=== PATIENT | female | born 1955 | race Caucasian/White ===

== ENCOUNTER 2017-11-19 17:42 | Emergency (ER) | payer MEDICAID ==
[2017-11-19 17:42] VITALS: BMI 43.0
--- NOTE | 2017-11-19 19:37 | ED PDOC ---
Lower Extremity Pain/Injury Time Seen by Provider: 11/19/17 18:46 Chief Complaint (Nursing): Lower Extremity Problem/Injury Chief Complaint (Provider): Left Ankle Pain and Swelling History Per: Patient History/Exam Limitations: no limitations Onset/Duration Of Symptoms: Days (x2 weeks) Current Symptoms Are (Timing): Still Present Additional Complaint(s): 62 year old female presents to the ED for evaluation of left ankle swelling and pain. Patient states that one month ago she injured her left pinky toe, and after normal XRs, was told by her director multiple sclerosis center Dr. Caballero that it was a ligament injury. She reports two weeks ago she noticed swelling and burning pain to her left ankle despite any further injury, and had an US done to r/o a DVT which was unremarkable. Since the US, she notes the swelling and pain have increased, especially at the end of the day, but has not been taking any medications for these symptoms. She has no other complaints at this time. Otherwise, (-) numbness, (-) tingling (-) falls. PMD: Eric Past Medical History Reviewed: Historical Data, Nursing Documentation, Vital Signs Vital Signs: Last Vital Signs Temp 98.4 F 11/19/17 18:40 Pulse 72 11/19/17 18:40 Resp 16 11/19/17 18:40 BP 178/84 H 11/19/17 18:40 Pulse Ox 98 11/19/17 18:40 - Medical History PMH: Anxiety, Asthma (NO PROBLEM 3 YEARS NO MEDS), CAD, Diabetes, Fractures (RT WRIST NO SURGERY), Gastritis, HTN, Hypercholesterolemia, Sleep Apnea (USES C-PAP ) Denies: Chronic Kidney Disease Other PMH: kidney cancer - Surgical History Surgical History: Endoscopy Other surgeries: kidney removal; stent placement - Family History Family History: States: Unknown Family Hx - Social History Ex-Smoker (has not smoked in the last 12 months): Yes Alcohol: None Drugs: Denies - Home Medications Home Medications: Ambulatory Orders Medication Instructions Recorded Atenolol [Tenormin] 1 tab PO DAILY 02/05/15 Liraglutide [Victoza] 12 mg SC HS 02/05/15 Valsartan [Diovan] 1 tab PO DAILY 02/05/15 amLODIPine [Norvasc] 1 tab PO DAILY 02/05/15 Acetaminophen [Acetaminophen 8 650 mg PO Q8 #24 tablet.er 11/19/17 Hour] - Allergies Allergies/Adverse Reactions: Allergies Allergy/AdvReac Type Severity Reaction Status Date / Time iodine Allergy RASH Verified 11/19/17 18:40 Penicillins Allergy RASH Verified 11/19/17 18:40 Review of Systems ROS Statement: Except As Marked, All Systems Reviewed And Found Negative Musculoskeletal: Positive for: Other (left ankle swelling and pain) Neurological: Negative for: Numbness (or tingling) Physical Exam - Reviewed Nursing Documentation Reviewed: Yes Vital Signs Reviewed: Yes - Physical Exam Comments: GENERAL APPEARANCE: Patient is awake, alert, oriented x 3, in no acute distress. SKIN: Warm, dry; (-) cyanosis. NECK: Supple, FROM LEFT LOWER EXTREMITY: Ankle: (+) small effusion, (+) decreased ROM secondary to pain, (-) erythema, (-) ecchymosis. Foot: non tender with full ROM. Remainder of extremity is non tender with full ROM, (-) calf tenderness (-) palpable cord. (+) distal pulses. Sensation intact throughout. HEART AND CARDIOVASCULAR: (-) irregularity; (-) murmur, (-) gallop. CHEST AND RESPIRATORY: (-) rales, (-) rhonchi, (-) wheezes; breath sounds equal. NEURO AND PSYCH: Mental status as above. (-) focal findings (-) facial asymmetry. Gait steady, speech clear. - ECG O2 Sat by Pulse Oximetry: 98 (RA) Pulse Ox Interpretation: Normal Medical Decision Making Medical Decision Making: Time: 19:13 Initial Impression: acute ankle pain/effusion Initial Plan: --Tylenol 650 mg PO --Left ankle XR --Consult podiatry --Re-evaluation 20:09 Ankle XR: no fracture, no dislocation, as read by PA. Patient advised that official radiology read of XR is still pending and will call the patient if there is any discrepancy within 24 hours. 20:30 Patient awaiting podiatry evaluation. Case discussed with Isaak Lamar, podiatry resident who is agreeable to evaluation in ED. 2039 Podiatry at bedside. See consult note. 2054 Podiatry recommends foot XRs. Left foot 3 views XR ordered. 2209 Foot XR: no fracture, no dislocation, as read by PA. Patient advised that official radiology read of XR is still pending and will call the patient if there is any discrepancy within 24 hours. Repeat BP: 131/78 Repeat HR: 85 Per podiatry evaluation, patient can follow up in podiatry clinic with Dr Russell or with her own director multiple sclerosis center, Dr Bro. RICE encouraged. On re-evaluation, patient reports improvement of symptoms. Patient remains AAOx3 , in no acute distress. Neck is supple, lungs CTA, cardiac RRR, neuro exam shows no focal findings. VSS, stable for discharge. Diagnostic results d/w the patient in great detail. Dx of ankle effusion, ankle pain d/w the patient. Based on history, exam and diagnostic results plan will be for discharge and outpatient podiatry follow up. Advised to follow up with primary care physician/podiatry in 1-2 days without fail. Advised to take medication as prescribed. Return to the emergency room at any time for any new or worsening symptoms. Patient states she fully agrees with and understands discharge instructions. States that she agrees with the plan and disposition. Verbalized and repeated discharge instructions and plan. I have given the patient opportunity to ask any additional questions. Scribe Attestation: Documented by Carolina Maurer, acting as a scribe for Stephani Marley PA-C. Provider Scribe Attestation: All medical record entries made by the Scribe were at my direction and personally dictated by me. I have reviewed the chart and agree that the record accurately reflects my personal performance of the history, physical exam, medical decision making, and the department course for this patient. I have also personally directed, reviewed, and agree with the discharge instructions and disposition. Disposition - Clinical Impression Clinical Impression: Ankle effusion, Ankle pain - Patient ED Disposition Is Patient to be Admitted: No Counseled Patient/Family Regarding: Studies Performed, Diagnosis, Need For Followup, Rx Given - Disposition Referrals: Podiatry Clinic [Outside] Edis Bro DPM [[facility]] - Disposition: Routine/Home Disposition Time: 22:11 Condition: STABLE Additional Instructions: FOLLOW UP WITH PODIATRY IN 1-2 DAYS WITHOUT FAIL. RETURN TO ED WITH ANY NEW OR WORSENING SYMPTOMS. REST ICE ELEVATE Prescriptions: Acetaminophen [Acetaminophen 8 Hour] 650 mg PO Q8 #24 tablet.er Instructions: Ankle Sprain Forms: [employer] (Belarusian) Print Language: IVORIAN - POA Present On Arrival: None
[2017-11-19 22:21] VITALS: BP 131/78; PULSE 85; RESP 15; TEMP 98.2; O2SAT 98
--- NOTE | 2017-11-19 23:45 | CP.PCM.CON ---
History of Present Illness - History of Present Illness History of Present Illness: Consult notes for attending Drew Vital A 62 Y/O F patient seen and evaluated at the bedside of the ED for burning pain in her Left foot. Patient was accompanied by her daughter. patient states that 1 month ago she stubbed her left pinky toe. She states that she went to the ED where X-ray was done for her and showed no fracture in her toe. Patient states that since then the lateral side of her foot has burning pain. patient states that also there is swelling at this site and at her left ankle which come and go. Patient states that the burning sensation is inconsistent. She states that it keeps coming when she twist her foot inside. Patient denies any other pedal complaint. Patient denies any recent F/N/V/C or SOB. PMH: DM II, HTN, renal cancer, Bronchial asthma, CAD, Hypercholestremia and sleep apmea. PSH: Nephrectomy, Cardiac stent placement. Allergies: Iodine and penicillin S Hx: Ex-smoker Review of Systems - Review of Systems Review of Systems: As Per HPI Past Patient History - Past Medical History & Family History Past Medical History?: Yes - Past Social History Alcohol: None Drugs: Denies - CARDIAC Hx Hypercholesterolemia: Yes Hx Hypertension: Yes - PULMONARY Hx Asthma: Yes (NO PROBLEM 3 YEARS NO MEDS) Hx Sleep Apnea: Yes (USES C-PAP) - NEUROLOGICAL Hx Neurological Disorder: No Hx Dizziness: Yes (SOMETIMES) - HEENT Hx HEENT Problems: Yes (GLASSES) Hx Glaucoma: Yes (NO EYE DROPS) - RENAL Hx Chronic Kidney Disease: No - ENDOCRINE/METABOLIC Hx Endocrine Disorders: Yes Hx Diabetes Mellitus Type 1: Yes - HEMATOLOGICAL/ONCOLOGICAL Hx Blood Transfusions: (UNSURE) Hx Cancer: Yes (KIDNEY) Hx Chemotherapy: No - INTEGUMENTARY Hx Dermatological Problems: No - MUSCULOSKELETAL/RHEUMATOLOGICAL Hx Fractures: Yes (RT WRIST NO SURGERY) - GASTROINTESTINAL Hx Gastritis: Yes - GENITOURINARY/GYNECOLOGICAL Hx Genitourinary Disorders: Yes (KIDNEY CANCER) - PSYCHIATRIC Hx Anxiety: Yes - SURGICAL HISTORY Hx Surgeries: Yes (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) Hx Section: Yes (X3) Hx Musculoskeletal Surgery: Yes (RT FOOT SURGERY X3) Other/Comment: SINUS SURGERY 25 YRS AGO - ANESTHESIA Hx Anesthesia: Yes Hx Anesthesia Reactions: No Hx Malignant Hyperthermia: No Meds Home Medications: Home Medication List Medication Instructions Recorded Confirmed Type Acetaminophen [Acetaminophen 8 650 mg PO Q8 #24 tablet.er 11/19/17 Rx Hour] Allergies/Adverse Reactions: Allergies Allergy/AdvReac Type Severity Reaction Status Date / Time iodine Allergy RASH Verified 11/19/17 18:40 Penicillins Allergy RASH Verified 11/19/17 18:40 Physical Exam - Constitutional Appears: Well, Non-toxic, No Acute Distress - Head Exam Head Exam: ATRAUMATIC, NORMOCEPHALIC - Extremities Exam Additional comments: Lower extremity focused exam: Vasc: DP/PT 2/4 b/l. Cap. refill < 3 sec in all digits. Temp gradient warm to cool. +1 chery-malleolar pitting edema noted at the left foot. Neuro: Protective and gross sensation are intact. Derm: No open lesions, No clinical signs of active bacterial infection. MSK:Muscle power intact 5/5 in all muscle groups b/l. mild pain on palpation of the lateral border of the left foot. - Neurological Exam Neurological exam: Alert, Oriented x3 - Psychiatric Exam Psychiatric exam: Normal Affect, Normal Mood Results - Vital Signs Recent Vital Signs: Last Vital Signs Temp 98.2 F 11/19/17 22:20 Pulse 85 11/19/17 22:20 Resp 15 11/19/17 22:20 BP 131/78 11/19/17 22:20 Pulse Ox 98 11/19/17 22:21 Assessment & Plan - Assessment and Plan (Free Text) Assessment: 62 Y/O F patient seen and evaluated at the bedside of the ED for burning pain in her Left foot Plan: Patient seen and evaluated at the bedside of the ED. Plan discussed in details with the attending Drew Vital. Left foot and ankle X-rays, reviewed and showed No bone fractures or deformities. X-ray results discussed with the patient. Patient vitals reviewed: Afebrile. Explained to the patient the need to give some time to the foot to heal from the trauma that happened a month ago. Patient advised to do rest her foot, do icing and elevation of her foot. Patient advised to use OTC Tylenol for the pain. Patient and her daughter expressed verbal understanding. Patient to F/U with Drew Vital in the podiatry clinic. - Date & Time Date: 11/19/17 Time: 23:53
--- NOTE | 2017-11-20 08:33 | RAD ---
PROCEDURE: Left Ankle Radiographs. HISTORY: joint effusion COMPARISON: None FINDINGS: BONES: No acute fracture. JOINTS: Ankle mortise maintained. Talar dome intact SOFT TISSUES: Lateral malleolar soft tissue swelling. Small ankle joint effusion. OTHER FINDINGS: Achilles enthesophyte. Small inferior plantar calcaneal spur. IMPRESSION: Lateral malleolar soft tissue swelling and small ankle joint effusion without demonstrated fracture or dislocation.
--- NOTE | 2017-11-20 09:28 | RAD ---
PROCEDURE: Left Foot Radiographs. HISTORY: requested by podiatry, ankle effusion COMPARISON: None. FINDINGS: BONES: No demonstrated fracture. JOINTS: Normal. SOFT TISSUES: Small ankle joint effusion. OTHER FINDINGS: Achilles enthesophyte. Small inferior plantar calcaneal spur. IMPRESSION: Small ankle joint effusion without demonstrated fracture or dislocation.
== END 2017-11-19 22:24 | disposition home or self-care (01) ==
LOC: H.ER 17:42
DX: M25.472 Effusion, left ankle (principal)